=== PATIENT | female | born 1955 | race Caucasian/White ===

== ENCOUNTER → 2017-04-02 08:24 | Outpatient (CLI) | payer BC, SELFPAY ==
--- NOTE | 2017-04-02 09:54 | US_ITS ---
US extremity LT limited CLINICAL INDICATION: ITS.REASON: LT LEG PAIN, SENSITIVITY ORDERING PHYSICIAN: Lexi Mariscal PATIENT AGE: 61 years COMPARISON: None FINDINGS: Sonographic images performed over the area of tenderness in the left lower leg laterally. No sonographic abnormalities. No masses or abnormal fluid collection. IMPRESSION: Unremarkable ultrasound of the left lower leg laterally
== END ==
PROVIDERS: PCP Family Medicine; Visit Provider Family Medicine
DX: M79.606 Pain in leg, unspecified (principal)
CPT/HCPCS: 76882

== ENCOUNTER → 2017-04-08 11:57 | Outpatient (CLI) | payer BC, SELFPAY ==
--- NOTE | 2017-04-08 12:04 | XR_ITS ---
XR tibia fibula LT 2V CLINICAL INDICATION: ITS.REASON: LEG PAIN ORDERING PHYSICIAN: Lexi Mariscal PATIENT AGE: 61 years COMPARISON: None FINDINGS: No bony or joint is evident IMPRESSION: Negative left tib-fib
== END ==
PROVIDERS: PCP Family Medicine; Visit Provider Family Medicine
DX: M79.605 Pain in left leg (principal)
CPT/HCPCS: 73590

== ENCOUNTER → 2017-06-02 08:33 | Outpatient (CLI) | payer BC, SELFPAY ==
--- NOTE | 2017-06-02 08:36 | MM_ITS ---
MM Dig screening mamm BI w/CAD CAD Screening COMPARISON: Digital mammograms 03/24/2015 and 04/04/2016 INDICATION: Is a history of breast cancer patient's 4 cisterns. There is been previous biopsy right breast for benign disease. TECHNIQUE: Standard CC and MLO images were obtained. R2 CAD reviewed. FINDINGS: Moderate fibroglandular densities are seen in central portions of both breast. Again noted is a stable benign-appearing density near the axillary tail right breast and shown to be a normal-appearing node on ultrasound right breast 02/18/2014. There is no new or suspicious lesion in either breast and no suspicious microcalcifications. IMPRESSION: Stable exam no suspicious lesion seen BI-RADS Category: 2 Benign Finding(s) RECOMMENDED FOLLOW-UP: 1YR - 1 YEAR FOLLOW-UP (A letter has been sent to the patient regarding results of the study.)
== END ==
PROVIDERS: PCP Family Medicine; Visit Provider Family Medicine
DX: Z12.31 Encounter for screening mammogram for malignant neoplasm of breast (principal)
CPT/HCPCS: 77067

== ENCOUNTER → 2017-08-06 08:25 | Outpatient (CLI) | payer BC, SELFPAY ==
--- NOTE | 2017-08-06 08:26 | XR_ITS ---
XR DEXA axial skeleton HISTORY: ITS.REASON: screening ORDERING PHYSICIAN: Skip Mcgrath MD PATIENT AGE: 61 years COMPARISON: 04/27/2012 FINDINGS: The BMD measured at the Right femoral neck is 0.842 g/cm squared with a T score of -1.4. This is considered Osteopenic according to the World Health Organization criteria. Fracture risk is Moderate. Treatment is advised. The mean hip density is unchanged from 04/27/2012 IMPRESSION: Osteopenia with moderate fracture risk. Recommend follow up exam July 2019
== END ==
PROVIDERS: PCP Family Medicine; Visit Provider Obstetrics & Gynecology
DX: Z13.820 Encounter for screening for osteoporosis (principal); Z78.0 Asymptomatic menopausal state
CPT/HCPCS: 77080

== ENCOUNTER → 2018-04-14 09:55 | Outpatient (POV) | payer BC, SELFPAY | PROVIDERS: Visit Provider Dermatology | DX: Z00.00 Encounter for general adult medical examination without abnormal findings (principal) ==

== ENCOUNTER → 2018-06-24 08:43 | Outpatient (CLI) | payer BC, SELFPAY ==
--- NOTE | 2018-06-24 08:46 | MM_ITS ---
MM Dig screening mamm BI w/CAD CAD Screening COMPARISON: Digital mammograms with CAD 06/02/2017 and 04/04/2016 INDICATION: There is a history of breast cancer patient's 4 cisterns. There is been previous biopsy right breast for benign disease. TECHNIQUE: Standard CC and MLO images were obtained. R2 CAD reviewed. FINDINGS: Moderate diffuse fibroglandular densities are seen in both breasts. There is a questionable area of asymmetric glandular density central portion right breast best appreciated on the CC projection. This was seen previously but appears slightly more prominent on the current study but again appears much less suspicious on MLO view. An additional exaggerated cc view is obtained however and the asymmetric glandular density is still present having somewhat irregular borders. Recommend the patient return for spot compression view in the CC projection and 90 degrees lateral view and ultrasound may be necessary as well. There are no suspicious microcalcifications. IMPRESSION: Fibrofatty parenchyma possible developing glandular asymmetry and recommend patient return for additional imaging BI-RADS Category: 0 Need Additional Imaging Evaluation RECOMMENDED FOLLOW-UP: IMM - IMMEDIATE FOLLOW-UP RECOMMENDED (A letter has been sent to the patient regarding results of the study.)
== END ==
PROVIDERS: PCP Family Medicine; Visit Provider Family Medicine
DX: Z12.31 Encounter for screening mammogram for malignant neoplasm of breast (principal)
CPT/HCPCS: 77067

== ENCOUNTER → 2018-07-07 13:23 | Outpatient (CLI) | payer BC, SELFPAY ==
--- NOTE | 2018-07-07 13:33 | MM_ITS ---
MM Dig mamm DX unilat RT CAD, US breast RT complete INDICATION: Follow-up abnormal mammogram ORDERING PHYSICIAN: Lexi Mariscal PATIENT AGE: 62 years COMPARISON: 06/24/2018, 06/02/2017 TECHNIQUE: Problem-solving views right breast ultrasound FINDINGS: The area of asymmetric density in the lateral aspect of the right breast is once again noted but appear to compress out on the spot compression views in the MLO view and is not demonstrated on the ML view. No malignant appearing mass or malignant appearing microcalcification is evident. Right breast ultrasound, complete with axilla no cystic or solid lesions are evident. There are small nodes in the axilla IMPRESSION: The area of asymmetric density is felt to be due to asymmetric fibroglandular tissue. Recommend 6 month mammographic follow-up BI-RADS Category: 3 Probably Benign Finding Short Term Follow-up RECOMMENDED FOLLOW-UP: 6M - 6 MONTH FOLLOW-UP (A letter has been sent to the patient regarding results of the study.)
== END ==
PROVIDERS: PCP Family Medicine; Visit Provider Family Medicine
DX: R92.8 Other abnormal and inconclusive findings on diagnostic imaging of breast (principal)
CPT/HCPCS: 76641; 77065

== ENCOUNTER → 2020-05-23 08:21 | Outpatient (CLI) | payer BC, SELFPAY ==
--- NOTE | 2020-05-23 08:28 | XR_ITS ---
PROCEDURE: XR DEXA AXIAL SKELETON CLINICAL HISTORY: OSTEOPENIA COMPARISON: CR DEXAAX XR DEXA axial skeleton from 08/06/2017 FINDINGS: The right hip BMD is 0.747 with a T-score of -0.9. The left hip BMD is 0.824 with a T-score of -0.2. The lumbar spine BMD is 0.871 with a T-score of -1.6. Previously the lowest density the was in the right femoral neck with a T-score of -1.4. IMPRESSION: This patient is considered osteopenic according to the World Health Organization criteria. Bone density is between 10 and 25 percent below young normal. Fracture risk is moderate. Treatment is advised. Based on these results a follow-up exam is recommended in 2 year. Dictated by: Leo Frederick MD 05/24/2020 09:34 Leo Frederick MD in [place] 05/24/2020 09:34
== END ==
PROVIDERS: PCP Family Medicine; Visit Provider Family Medicine
DX: M85.89 Other specified disorders of bone density and structure, multiple sites (principal)
CPT/HCPCS: 77080

== ENCOUNTER → 2022-07-02 09:39 | Outpatient (POV) | payer BC, SELFPAY | PROVIDERS: Visit Provider Dermatology | DX: Z00.00 Encounter for general adult medical examination without abnormal findings (principal) ==